=== PATIENT | female | born 1960 | race Caucasian/White ===

== ENCOUNTER → 2019-12-21 14:00 | Outpatient (CLI) | payer BC, SELFPAY | PROVIDERS: Visit Provider Family Medicine | DX: N30.00 Acute cystitis without hematuria (principal) | CPT/HCPCS: 87086 ==

== ENCOUNTER → 2020-07-02 12:46 | Outpatient (CLI) | payer BC, SELFPAY ==
[2020-07-02 13:27] LABS: Potassium 3.8 mmoL/L (3.5-5.1)
== END ==
PROVIDERS: Visit Provider Family Medicine
DX: E87.5 Hyperkalemia (principal)
CPT/HCPCS: 36415; 84132

== ENCOUNTER 2025-01-02 08:40 | Outpatient (CLI) | payer BC, SELFPAY ==
--- NOTE | 2025-01-02 08:43 | XR_ITS ---
FINAL REPORT TECHNIQUE: Bone densitometry calculations of the lumbar spine and left hip were obtained. CLINICAL HISTORY: SCREENING FINDINGS: Using L1-4, the bone mineral density of the spine is 1.110 g/cm2, corresponding to T-score of 0.6 and a Z score of 2.2. This is within the range of normal. Using the left hip, the bone mineral density of the femoral neck is 0.770 g/cm2, corresponding to a T-score of -0.7 and a Z-score of 0.7. This is within the range of normal. Using the right hip, the bone mineral density of the femoral neck is 0.778 g/cm2, corresponding to a T-score of -0.6 and a Z-score of 0.8. This is within the range of normal. NOTE: T-score: Standard deviation compared with peak bone mass of young adult mean. *Following the recommendations of the International Society of Bone densitometry, classification of hip BMD is based on the lower of two T-scores; total hip or femoral neck. IMPRESSION: Bone mineral density of the lumbar spine and the femoral necks bilaterally is normal. FRAX was not reported because all of the T-scores are at or above -1.0. Reviewed, Interpreted and Dictated by Betty Sánchez MD Transcribed by [place] [place] Authenticated and [facility]
== END 2025-01-02 23:59 | disposition home or self-care (01) ==
LOC: RAD 08:40
PROVIDERS: PCP Family Medicine; Visit Provider Family Medicine
DX: Z13.820 Encounter for screening for osteoporosis (principal); Z78.0 Asymptomatic menopausal state
CPT/HCPCS: 77080